=== PATIENT | female | born 1995 | race Caucasian/White ===

== ENCOUNTER 2016-12-01 17:01 | Outpatient (CLI) | payer OTHER ==
[~2016-12-01] VITALS: Ht 154.9 cm; Wt 83.0 kg
[~2016-12-01 17:01] MED LIST: ACYCLOVIR200 MG PO; ADDERALL20 MG PO; ALBUTEROL SULF8.5 GM IH; AMOXICILLIN500 M1 PO; AUGMENTIN875 MG PO; BENZONATATE100 MG PO; BIRTH CONTROL PILLS; INDOCIN25 MG PO; KEFLEX500 MG PO; NAPROSYN500 MG PO; PREDNISONE10 MG PO; TESSALON PERLE100 MG PO; VENTOLIN HFA18 GM IH; VITAFOL-OB+DHA1 EACH PO; XANAX0.25 MG PO
[2016-12-01 17:29] VITALS: BP 128/82
[2016-12-01 18:36] LABS: ADD MIUA? NO; BILIRUBIN NEGATIVE; BLOOD NEGATIVE; COLOR YELLOW ((YELLOW)); GLUCOSE (STRIP) NEGATIVE; KETONES NEGATIVE; LEUKOCYTES NEGATIVE; NITRITE NEGATIVE; PROTEIN (STRIP) TRACE; SPECIFIC GRAVITY 1.022 (1.000-1.030); UCUL ADDED? NO; UROBILINOGEN 0.2 MG/DL (0.2-1.0)
[2016-12-01 19:08] VITALS: BP 111/55
== END 2016-12-01 19:25 | disposition home or self-care (01) ==
LOC: LDRP-OP 17:01 → 2WEST 17:02 → LDRP-OP 01-04 00:23
PROVIDERS: Advanced Practice Midwife
DX: M54.5 Low back pain (principal); O99.89 Other specified diseases and conditions complicating pregnancy, childbirth and the puerperium; Z3A.39 39 weeks gestation of pregnancy
CPT/HCPCS: 59025; 81003; G0378

== ENCOUNTER 2016-12-08 14:19 | Inpatient (IN) | payer OTHER ==
[~2016-12-08] VITALS: Ht 154.9 cm; Wt 83.9 kg
[2016-12-08] VITALS (15 sets, daily range): BP systolic 120–153; BP diastolic 71–99
[2016-12-08 15:35] LABS: EOSINOPHIL COUNT 0.1 K/uL (0-0.3); HEMATOCRIT 31.2 % (36.0-46.0); IMMATURE GRANULOCYTE (%) 0.9 % (0.0-0.7); IMMATURE GRANULOCYTE COUNT 0.1 K/uL; LYMPHOCYTE COUNT 0.9 K/uL (1.0-2.8); MCH 31.7 PG (29.0-34.0); MCHC 34.3 G/DL (30.0-36.0); MCV 92.3 FL (83-99); MEAN PLAT.VOLUME 10.6 uM^3 (9.5-12.4); MONOCYTE (%) 13.5 % (3-12); MONOCYTE COUNT 1.4 K/uL (0-0.8); NEUTROPHIL COUNT 7.6 K/uL (1.8-6.4); NRBC (%) 0.2 /100 WBC (0-0); PLATELET COUNT 215 K/uL (156-360); RBC DIS.WIDTH-CV 13.2 % (11.8-14.6); RBC DIS.WIDTH-SD 43.7 % (39-53); RED BLOOD COUNT 3.38 M/uL (3.80-5.20)
[2016-12-08 16:02] LABS: ANION GAP 12 MEQ/L (2-14); CHLORIDE 106 MEQ/L (99-109); POTASSIUM 4.1 MEQ/L (3.7-5.4); SAMPLE HEMOLYSIS CHECK 0; SAMPLE ICTERIC CHECK 0; SAMPLE LIPEMIA CHECK 0; SODIUM 137 MEQ/L (136-147); TOTAL BILIRUBIN 0.3 MG/DL (0.0-1.0)
[2016-12-08 16:08] LABS: ALKALINE PHOSPHATASE 206 IU/L (3-129); GFR ESTIMATE (CALCULATED) > 59 mL/min/; GLUCOSE 67 mg/dL (70-99); UREA NITROGEN (BUN) 5 mg/dL (9-23); URIC ACID 5.8 mg/dL (3.1-9.2)
[2016-12-08 16:11] LABS: ADD MIUA? YES; BILIRUBIN NEGATIVE; BLOOD NEGATIVE; COLOR YELLOW ((YELLOW)); GLUCOSE (STRIP) NEGATIVE; KETONES NEGATIVE; LEUKOCYTES SMALL; NITRITE NEGATIVE; PROTEIN (STRIP) 100; SPECIFIC GRAVITY 1.015 (1.000-1.030); UROBILINOGEN 0.2 MG/DL (0.2-1.0)
[2016-12-08 16:33] LABS: BACTERIA NONE SEEN /HPF; EPITHELIAL CELLS 2+ /HPF; MUCUS TRACE /LPF; RED BLOOD CELLS 0-5 /HPF (0-5); UCUL ADDED? NO
[2016-12-08 16:34] LABS: CASTS NONE SEEN /LPF; CRYSTALS NONE SEEN
[2016-12-09] VITALS (32 sets, daily range): BP systolic 110–179; BP diastolic 60–100
[2016-12-09 06:04] LABS: EOSINOPHIL (%) 0.9 % (0-5); EOSINOPHIL COUNT 0.1 K/uL (0-0.3); HEMATOCRIT 30.2 % (36.0-46.0); IMMATURE GRANULOCYTE (%) 1.3 % (0.0-0.7); IMMATURE GRANULOCYTE COUNT 0.1 K/uL; LYMPHOCYTE COUNT 1.4 K/uL (1.0-2.8); MCH 31.8 PG (29.0-34.0); MCHC 33.8 G/DL (30.0-36.0); MCV 94.1 FL (83-99); MEAN PLAT.VOLUME 10.9 uM^3 (9.5-12.4); MONOCYTE (%) 12.1 % (3-12); MONOCYTE COUNT 1.1 K/uL (0-0.8); NEUTROPHIL (%) 70.3 % (45-76); NEUTROPHIL COUNT 6.5 K/uL (1.8-6.4); NRBC (%) 0.3 /100 WBC (0-0); PLATELET COUNT 206 K/uL (156-360); RBC DIS.WIDTH-CV 13.3 % (11.8-14.6); RBC DIS.WIDTH-SD 44.8 % (39-53); RED BLOOD COUNT 3.21 M/uL (3.80-5.20); WHITE BLOOD COUNT 9.3 K/uL (4.1-10.2)
[2016-12-09 06:28] LABS: ALKALINE PHOSPHATASE 184 IU/L (3-129); ANION GAP 10 MEQ/L (2-14); CHLORIDE 107 MEQ/L (99-109); GFR ESTIMATE (CALCULATED) > 59 mL/min/; GLUCOSE 78 mg/dL (70-99); POTASSIUM 3.8 MEQ/L (3.7-5.4); SAMPLE HEMOLYSIS CHECK 0; SAMPLE ICTERIC CHECK 0; SAMPLE LIPEMIA CHECK 0; SODIUM 137 MEQ/L (136-147); TOTAL BILIRUBIN 0.3 MG/DL (0.0-1.0); UREA NITROGEN (BUN) 4 mg/dL (9-23)
[2016-12-10] VITALS (42 sets, daily range): BP systolic 104–164; BP diastolic 60–95
[2016-12-11 00:38] LABS: HEMATOCRIT 28.7 % (36.0-46.0)
[2016-12-11 02:51] VITALS: BP 141/85
[2016-12-11 05:15] VITALS: BP 127/59
[2016-12-11 07:25] VITALS: BP 121/72
[2016-12-11 07:56] LABS: EOSINOPHIL (%) 0.1 % (0-5); HEMATOCRIT 19.9 % (36.0-46.0); IMMATURE GRANULOCYTE (%) 0.4 % (0.0-0.7); IMMATURE GRANULOCYTE COUNT 0.1 K/uL; LYMPHOCYTE COUNT 1.5 K/uL (1.0-2.8); MCH 32.2 PG (29.0-34.0); MCHC 34.2 G/DL (30.0-36.0); MCV 94.3 FL (83-99); MEAN PLAT.VOLUME 10.3 uM^3 (9.5-12.4); MONOCYTE (%) 6.2 % (3-12); NEUTROPHIL (%) 83.7 % (45-76); NEUTROPHIL COUNT 13.6 K/uL (1.8-6.4); PLATELET COUNT 203 K/uL (156-360); RBC DIS.WIDTH-CV 13.6 % (11.8-14.6); RBC DIS.WIDTH-SD 46.2 % (39-53)
[2016-12-11 08:06] LABS: RED BLOOD COUNT 2.11 M/uL (3.80-5.20); WHITE BLOOD COUNT 16.3 K/uL (4.1-10.2)
[2016-12-11 11:50] VITALS: BP 142/83
[2016-12-11 16:00] VITALS: BP 131/81
[2016-12-11 20:21] VITALS: BP 133/67
[2016-12-12] VITALS (11 sets, daily range): BP systolic 116–147; BP diastolic 62–105
[2016-12-12 09:06] LABS: EOSINOPHIL (%) 0.7 % (0-5); EOSINOPHIL COUNT 0.1 K/uL (0-0.3); HEMATOCRIT 17.9 % (36.0-46.0); IMMATURE GRANULOCYTE (%) 0.8 % (0.0-0.7); IMMATURE GRANULOCYTE COUNT 0.1 K/uL; LYMPHOCYTE COUNT 1.9 K/uL (1.0-2.8); MCH 31.9 PG (29.0-34.0); MCHC 33.5 G/DL (30.0-36.0); MCV 95.2 FL (83-99); MONOCYTE (%) 7.2 % (3-12); MONOCYTE COUNT 0.9 K/uL (0-0.8); NEUTROPHIL (%) 76.4 % (45-76); NEUTROPHIL COUNT 9.7 K/uL (1.8-6.4); PLATELET COUNT 197 K/uL (156-360); RBC DIS.WIDTH-SD 48.1 % (39-53); RED BLOOD COUNT 1.88 M/uL (3.80-5.20); WHITE BLOOD COUNT 12.7 K/uL (4.1-10.2)
[2016-12-13] VITALS (23 sets, daily range): BP systolic 131–164; BP diastolic 75–100
[2016-12-14] VITALS (8 sets, daily range): BP systolic 130–155; BP diastolic 82–99
[2016-12-14 07:20] LABS: HEMATOCRIT 22.7 % (36.0-46.0); MCH 30.7 PG (29.0-34.0); MCHC 33.9 G/DL (30.0-36.0); MCV 90.4 FL (83-99); MEAN PLAT.VOLUME 9.7 uM^3 (9.5-12.4); PLATELET COUNT 285 K/uL (156-360); RBC DIS.WIDTH-CV 15.5 % (11.8-14.6); RBC DIS.WIDTH-SD 50.8 % (39-53); RED BLOOD COUNT 2.51 M/uL (3.80-5.20)
[2016-12-15 03:50] VITALS: BP 148/99
[2016-12-15 07:26] VITALS: BP 141/93
[2016-12-15] MEDS ORDERED: IBUPROFEN800 MG PO (09:05)
[2016-12-15] MEDS ORDERED: NIFEDIPINE ER30 MG PO (09:05)
[2016-12-15] MEDS ORDERED: ENDOCET 5-3251 EACH PO (09:05)
[2016-12-15] MEDS ORDERED: FERROUS SULFAT325 MG PO (09:05)
[2016-12-15] MEDS ORDERED: MUPIROCIN22 GM TP (09:27)
[2016-12-15] MEDS ORDERED: KEFLEX500 MG PO (09:27)
[2016-12-15 13:36] VITALS: BP 152/86
== END 2016-12-15 16:30 | disposition home or self-care (01) | DRG 765 ==
LOC: LDRP-OP 14:19 → 2WEST 14:20 → LDRP-OP 01-04 23:11
PROVIDERS: Midwife; Nurse Practitioner; Obstetrics & Gynecology
PROC: 00HU33Z Insertion of Infusion Device into Spinal Canal, Percutaneous Approach (ICD-10-PCS; principal; 2016-12-09)
PROC: 3E0R3CZ (ICD-10-PCS; principal; 2016-12-09)
PROC: 10D00Z1 Extraction of Products of Conception, Low, Open Approach (ICD-10-PCS; 2016-12-10)
PROC: 3E0P7GC Introduction of Other Therapeutic Substance into Female Reproductive, Via Natural or Artificial Opening (ICD-10-PCS; 2016-12-10)
PROC: 30233N1 Transfusion of Nonautologous Red Blood Cells into Peripheral Vein, Percutaneous Approach (ICD-10-PCS; 2016-12-13)
DX: O99.344 Other mental disorders complicating childbirth (principal); O41.1230 Chorioamnionitis, third trimester, not applicable or unspecified; O72.1 Other immediate postpartum hemorrhage; O75.2 Pyrexia during labor, not elsewhere classified; D62 Acute posthemorrhagic anemia; O86.12 Endometritis following delivery; O64.0XX0 Obstructed labor due to incomplete rotation of fetal head, not applicable or unspecified; O14.94 Unspecified pre-eclampsia, complicating childbirth; O62.1 Secondary uterine inertia; O69.1XX0 Labor and delivery complicated by cord around neck, with compression, not applicable or unspecified; F41.9 Anxiety disorder, unspecified; Z3A.40 40 weeks gestation of pregnancy; Z37.0 Single live birth; J45.990 Exercise induced bronchospasm; L01.00 Impetigo, unspecified; J06.9 Acute upper respiratory infection, unspecified; O99.02 Anemia complicating childbirth; O99.513 Diseases of the respiratory system complicating pregnancy, third trimester; O99.713 Diseases of the skin and subcutaneous tissue complicating pregnancy, third trimester
CPT/HCPCS: 76818; 80053; 81003; 82570; 84156; 84550; 85014; 85018; 85025; 85027; 86038; 86850; 86900; 86901; 86920; 87252 90; 88307; 99202; G0378; J0131; J0295; J0595; J0690; J2210; J2274; J2405; J2765; J3010; J7030; J7050; J7120; P9016; Q0169

== ENCOUNTER 2017-01-20 16:52 | Emergency (ER) | payer OTHER ==
[~2017-01-20] VITALS: Ht 154.9 cm; Wt 67.4 kg
[~2017-01-20 16:52] MED LIST changes: +ENDOCET 5-3251 EACH PO; +FERROUS SULFAT325 MG PO; +IBUPROFEN800 MG PO; +MUPIROCIN22 GM TP; +NIFEDIPINE ER30 MG PO
[2017-01-20 17:47] LABS: HEMATOCRIT 37.4 % (36.0-46.0); MCHC 33.2 G/DL (30.0-36.0); MCV 87.6 FL (83-99); MEAN PLAT.VOLUME 8.7 uM^3 (9.5-12.4); PLATELET COUNT 399 K/uL (156-360); RBC DIS.WIDTH-CV 12.9 % (11.8-14.6); RBC DIS.WIDTH-SD 41.1 % (39-53); RED BLOOD COUNT 4.27 M/uL (3.80-5.20)
[2017-01-20 17:59] LABS: CHLORIDE 107 mEq/L (99-109); POTASSIUM 4.4 mEq/L (3.7-5.4); SODIUM 141 mEq/L (136-147)
[2017-01-20 18:01] LABS: GLUCOSE 88 mg/dL (70-99)
[2017-01-20 18:02] LABS: ANION GAP 13 MEQ/L (2-14)
[2017-01-20 18:05] LABS: GFR ESTIMATE (CALCULATED) > 59 mL/min/
[2017-01-20 18:06] LABS: UREA NITROGEN (BUN) 12 mg/dL (9-23)
[2017-01-20 18:13] LABS: QUANTITATIVE HCG < 4.0 MIU/ML
[2017-01-20 20:09] VITALS: BP 114/76
== END 2017-01-20 20:11 | disposition home or self-care (01) ==
LOC: EME 16:52
PROVIDERS: Nurse Practitioner Family
DX: O72.2 Delayed and secondary postpartum hemorrhage (principal)
CPT/HCPCS: 76856; 80048; 84702; 85027; 86850; 86900; 86901; 99281; 99284; J7030